=== PATIENT | female | born 1985 | race Two or more races ===

== ENCOUNTER 2020-02-21 19:22 | Emergency (ER) | payer MEDICAID, SELFPAY ==
[2020-02-21] MEDS ORDERED: Alum Hydroxide/Mag Hydroxide 30 ML, Lidocaine 2% 15 ML PO ONE ×2 (19:44)
--- NOTE | 2020-02-21 20:02 | EDM.PDOC ---
ED HPI GENERAL MEDICAL PROBLEM - General Chief Complaint: Chest Pain Stated Complaint: CHEST PAIN Time Seen by Provider: 02/21/20 19:30 Source of Information: Reports: Patient History Limitations: Reports: No Limitations - History of Present Illness INITIAL COMMENTS - FREE TEXT/NARRATIVE: c/o CP, lightheaded, inc'd BP at 2p today she had above sxs, discomfort in the epigastric area, did not eat bfast or lunch, tried eating pizza at 6p without benefit also took propranolol at 6p without benefit pt also takes Latuda for depression and Toradol prn for migraine BP at home was 141/101 which worried her, here it is 128/89 smoked 1 ppd x 12y not worked outside the house, was in bed much of the day, denies street drugs 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: - Past Surgical History Cardiovascular Surgical History: Reports: Coronary Artery Bypass Social & Family History - Family History Family Medical History: Noncontributory - Caffeine Use Caffeine Use: Reports: None ED ROS GENERAL - Review of Systems Review Of Systems: See Below Constitutional: Reports: No Symptoms HEENT: Reports: No Symptoms Respiratory: Reports: No Symptoms Cardiovascular: Reports: Chest Pain, Other (actually pt points to the epigastric area, not chest, as source of pain) Endocrine: Reports: No Symptoms GI/Abdominal: Reports: No Symptoms : Reports: No Symptoms Musculoskeletal: Reports: No Symptoms Skin: Reports: No Symptoms Neurological: Reports: No Symptoms Psychiatric: Reports: No Symptoms Hematologic/Lymphatic: Reports: No Symptoms Immunologic: Reports: No Symptoms ED EXAM, GENERAL - Physical Exam Exam: See Below Exam Limited By: No Limitations General Appearance: Alert, WD/WN, No Apparent Distress Ears: Hearing Grossly Normal Nose: Normal Inspection, Normal Mucosa, No Blood Throat/Mouth: Normal Inspection, Normal Lips, No Airway Compromise Head: Atraumatic, Normocephalic Neck: Normal Inspection, Supple, Non-Tender Respiratory/Chest: No Respiratory Distress, Lungs Clear, Normal Breath Sounds Cardiovascular: Regular Rate, Rhythm, No Edema, No Murmur GI/Abdominal: Normal Bowel Sounds, Soft, Non-Tender, No Distention, Other (epigastric area did not appear tender on exam) Back Exam: Normal Inspection, Full Range of Motion. No: CVA Tenderness (R), CVA Tenderness (L) Extremities: Normal Inspection, Normal Range of Motion, Non-Tender, Normal Capillary Refill, No Pedal Edema Neurological: Alert, Oriented, CN II-XII Intact, Normal Cognition, No Motor/Sensory Deficits Psychiatric: Normal Affect, Normal Mood Skin Exam: Warm, Dry, Intact, Normal Color, No Rash Lymphatic: No Adenopathy Course - Vital Signs Last Recorded V/S: Last Vital Signs Temp 36.6 C 02/21/20 19:35 Pulse 66 02/21/20 19:35 Resp 17 02/21/20 19:35 BP 139/89 02/21/20 19:35 Pulse Ox 100 02/21/20 19:35 - Orders/Labs/Meds Labs: Laboratory Tests 02/21/20 02/21/20 02/21/20 Range/Units 19:50 19:50 19:50 WBC 7.6 (4.5-12.0) X10-3/uL RBC 4.55 (3.23-5.20) x10(6)uL Hgb 13.3 (11.5-15.5) g/dL Hct 40.3 (30.0-51.3) % MCV 88.6 (80-96) fL MCH 29.3 (27.7-33.6) pg MCHC 33.0 (32.2-35.4) g/dL RDW 12.0 (11.5-15.5) % Plt Count 215 (125-369) X10(3)uL MPV 8.9 (7.4-10.4) fL Neut % (Auto) 63.7 (46-82) % Lymph % (Auto) 28.8 (13-37) % [place] % (Auto) 5.8 (4-12) % Eos % (Auto) 1 (1.0-5.0) % Baso % (Auto) 0 (0-2) % Neut # (Auto) 4.9 (1.6-8.3) # Lymph # (Auto) 2.2 (0.6-5.0) # [place] # (Auto) 0.4 (0.0-1.3) # Eos # (Auto) 0.1 (0.0-0.8) # Baso # (Auto) 0.0 (0.0-0.2) # D-Dimer, Quantitative 0.38 (0.0-0.59) mg/LFEU Sodium 140 (135-145) mmol/L Potassium 4.0 (3.5-5.3) mmol/L Chloride 104 (100-110) mmol/L Carbon Dioxide 28 (21-32) mmol/L BUN 13 (7-18) mg/dL Creatinine 1.0 (0.55-1.02) mg/dL Est Cr Clr Drug Dosing TNP Estimated GFR (MDRD) > 60 (>60) BUN/Creatinine Ratio 13.0 (9-20) Glucose 102 (80-116) mg/dL Calcium 9.0 (8.6-10.2) mg/dL Total Bilirubin 0.3 (0.1-1.3) mg/dL AST 15 D (5-25) IU/L ALT 23 D (12-36) U/L Alkaline Phosphatase 42 L (56-112) IU/L Troponin I (4.0-60.3) pg/mL C-Reactive Protein (0.5-0.9) mg/dL Total Protein 6.8 (6.0-8.0) g/dL Albumin 3.6 (3.5-5.2) g/dL Globulin 3.2 g/dL Albumin/Globulin Ratio 1.1 /14/20 Range/Units 19:50 WBC (4.5-12.0) X10-3/uL RBC (3.23-5.20) x10(6)uL Hgb (11.5-15.5) g/dL Hct (30.0-51.3) % MCV (80-96) fL MCH (27.7-33.6) pg MCHC (32.2-35.4) g/dL RDW (11.5-15.5) % Plt Count (125-369) X10(3)uL MPV (7.4-10.4) fL Neut % (Auto) (46-82) % Lymph % (Auto) (13-37) % [place] % (Auto) (4-12) % Eos % (Auto) (1.0-5.0) % Baso % (Auto) (0-2) % Neut # (Auto) (1.6-8.3) # Lymph # (Auto) (0.6-5.0) # [place] # (Auto) (0.0-1.3) # Eos # (Auto) (0.0-0.8) # Baso # (Auto) (0.0-0.2) # D-Dimer, Quantitative (0.0-0.59) mg/LFEU Sodium (135-145) mmol/L Potassium (3.5-5.3) mmol/L Chloride (100-110) mmol/L Carbon Dioxide (21-32) mmol/L BUN (7-18) mg/dL Creatinine (0.55-1.02) mg/dL Est Cr Clr Drug Dosing Estimated GFR (MDRD) (>60) BUN/Creatinine Ratio (9-20) Glucose (80-116) mg/dL Calcium (8.6-10.2) mg/dL Total Bilirubin (0.1-1.3) mg/dL AST (5-25) IU/L ALT (12-36) U/L Alkaline Phosphatase (56-112) IU/L Troponin I < 4.0 L (4.0-60.3) pg/mL C-Reactive Protein 0.3 L (0.5-0.9) mg/dL Total Protein (6.0-8.0) g/dL Albumin (3.5-5.2) g/dL Globulin g/dL Albumin/Globulin Ratio Meds: Medications Discontinued Medications Generic Name Dose Route Start Last Admin Trade Name Freq PRN Reason Stop Dose Admin Al Hydroxide/Mg Hydroxide 30 0 ml 02/21/20 19:44 02/21/20 19:48 ml/ Lidocaine HCl 15 ml PO 02/21/20 19:45 45 ml ONETIME ONE Administration - Re-Assessments/Exams Free Text/Narrative Re-Assessment/Exam: 02/21/20 20:04 EKG with FL 3.5 mm, no true delta wave, no ST change, SR, rate 63 labs pending epigastric pain gone after GI cocktail Free Text/Narrative Re-Assessment/Exam: 02/21/20 20:48 pt is pain free at time of d/c, labs are neg Departure - Departure Time of Disposition: 20:43 Disposition: Home, Self-Care 01 Condition: Good Clinical Impression: GERD (gastroesophageal reflux disease) - Discharge Information *PRESCRIPTION DRUG MONITORING PROGRAM REVIEWED*: Not Applicable *COPY OF PRESCRIPTION DRUG MONITORING REPORT IN PATIENT QUAN: Not Applicable Prescriptions: Omeprazole 20 mg PO DAILY #10 tablet.dr Instructions: Gastroesophageal Reflux Disease, Adult, Food Choices for Gastroesophageal Reflux Disease, Adult Referrals: PCP,Not In Area [Primary Care Provider] - Forms: ED Department Discharge Additional Instructions: To decrease acid production, take omeprazole 20 mg 1 tab daily for 10 days. To neutralize acid, take liquid antacid (Maalox, Mylanta or generic) 30 ml, which is 2 tablespoons, every 4 hours as needed. Limit fatty foods. Eat 3 meals a day. See your doctor in the next week for further recommendations. Return to ED if you are feeling worse or develop new symptoms. Sepsis Event Note (ED) - Evaluation Sepsis Screening Result: No Definite Risk - Focused Exam Vital Signs: Vital Signs Temp Pulse Resp BP Pulse Ox 02/21/20 19:35 36.6 C 66 17 139/89 100
== END 2020-02-21 21:00 | disposition home or self-care (01) ==
LOC: FB.ED 19:22
DX: K21.9 Gastro-esophageal reflux disease without esophagitis (principal); I10 Essential (primary) hypertension; I25.2 Old myocardial infarction; Z79.899 Other long term (current) drug therapy; F17.210 Nicotine dependence, cigarettes, uncomplicated
CPT/HCPCS: 36415; 80053; 84484; 85025; 85379; 86140; 93005; 99284-25; A9270-GY

== ENCOUNTER 2020-06-05 17:55 | Observation (INO) | payer MEDICAID ==
[2020-06-05] MEDS ORDERED: Sodium Chloride 0.9% 10 ML Syringe FLUSH PRN (18:20)
--- NOTE | 2020-06-05 18:27 | EDM.PDOC ---
ED HPI GENERAL MEDICAL PROBLEM - General Chief Complaint: Cardiovascular Problem Stated Complaint: DIZZINESS Time Seen by Provider: 06/05/20 18:22 Source of Information: Reports: Patient History Limitations: Reports: No Limitations - History of Present Illness INITIAL COMMENTS - FREE TEXT/NARRATIVE: Presents with intermittent "dizzy spells" associated with rapid heart rate and SOB x 1 week. These spells last up to 1 hour. Patient has a prior history of WPW s/p ablation in 2015 at [facility]. Patient drinks coffee daily, but not excessively. Denies substance abuse or use of stimulants. Duration: Week(s): (1) Severity: Moderate - Related Data Allergies Allergy/AdvReac Type Severity Reaction Status Date / Time duloxetine [From Cymbalta] Allergy Other Verified 06/05/20 18:30 lamotrigine [From Lamictal] Allergy Hives Verified 06/05/20 18:30 Home Meds: Home Meds Eletriptan Hydrobromide [Relpax] 40 mg PO DAILY PRN 02/21/20 [History] Lurasidone [Latuda] 60 mg PO BEDTIME 02/21/20 [History] Propranolol HCl [Propranolol] 60 mg PO BID 02/21/20 [History] Cyclobenzaprine [Flexeril] 10 mg PO BID PRN 06/05/20 [History] Ketorolac [Toradol] 60 mg IM ASDIRECTED PRN 06/05/20 [History] traZODone 50 - 100 mg PO BEDTIME PRN 06/05/20 [History] Past Medical History Cardiovascular History: Reports: Hypertension, Other (See Below) (WPW syndrome) 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 ED EXAM, GENERAL - Physical Exam Exam: See Below Exam Limited By: No Limitations General Appearance: Alert, WD/WN, No Apparent Distress Nose: Normal Inspection Throat/Mouth: No Airway Compromise Head: Atraumatic, Normocephalic Neck: Full Range of Motion Respiratory/Chest: No Respiratory Distress, Lungs Clear, Normal Breath Sounds Cardiovascular: Regular Rate, Rhythm, No Murmur Back Exam: Full Range of Motion Extremities: Normal Range of Motion Neurological: Alert, Normal Cognition Psychiatric: Normal Affect, Normal Mood Skin Exam: Warm, Dry, Intact #1 Interpretation EKG Date: 06/05/20 Time: 18:13 Rhythm: NSR Rate (Beats/Min): 66 Mize: Normal P-Wave: Present QRS: Normal ST-T: Normal QT: Normal Course - Vital Signs Last Recorded V/S: Last Vital Signs Temp 36.8 C 06/05/20 18:00 Pulse 72 06/05/20 18:00 Resp 18 06/05/20 18:00 BP 123/57 L 06/05/20 18:00 Pulse Ox 100 06/05/20 18:00 - Orders/Labs/Meds Orders: Active Orders 24 hr Category Date Time Status Admission Status [Patient Status] [ADT] Routine ADT 06/05/20 19:33 Ordered Telemetry Monitoring [Cardiac Monitoring] [RC] .As Care 06/05/20 18:20 Active Directed Sodium Chloride 0.9% [Saline Flush] Med 06/05/20 18:20 Active 10 ml FLUSH ASDIRECTED PRN Saline Lock Insert [OM.PC] Routine Oth 06/05/20 18:20 Ordered Medication Orders Sodium Chloride (Saline Flush) 10 ml FLUSH ASDIRECTED PRN PRN Reason: Keep Vein Open Last Admin: 06/05/20 18:30 Dose: 10 ml Documented by: KAY Labs: Laboratory Tests 06/05/20 06/05/20 Range/Units 18:42 18:42 WBC 6.5 (4.5-12.0) X10-3/uL RBC 4.91 (3.23-5.20) x10(6)uL Hgb 15.2 (11.5-15.5) g/dL Hct 43.3 (30.0-51.3) % MCV 88.2 (80-96) fL MCH 30.9 (27.7-33.6) pg MCHC 35.0 (32.2-35.4) g/dL RDW 11.7 (11.5-15.5) % Plt Count 242 (125-369) X10(3)uL MPV 8.4 (7.4-10.4) fL Neut % (Auto) 57.3 (46-82) % Lymph % (Auto) 33.5 (13-37) % [place] % (Auto) 7.5 (4-12) % Eos % (Auto) 2 (1.0-5.0) % Baso % (Auto) 0 (0-2) % Neut # (Auto) 3.7 (1.6-8.3) # Lymph # (Auto) 2.2 (0.6-5.0) # [place] # (Auto) 0.5 (0.0-1.3) # Eos # (Auto) 0.1 (0.0-0.8) # Baso # (Auto) 0.0 (0.0-0.2) # Sodium 138 (135-145) mmol/L Potassium 3.9 (3.5-5.3) mmol/L Chloride 101 (100-110) mmol/L Carbon Dioxide 28 (21-32) mmol/L BUN 13 (7-18) mg/dL Creatinine 0.9 (0.55-1.02) mg/dL Est Cr Clr Drug Dosing 73.55 mL/min Estimated GFR (MDRD) > 60 (>60) BUN/Creatinine Ratio 14.4 (9-20) Glucose 93 (80-116) mg/dL Calcium 9.6 (8.6-10.2) mg/dL Magnesium 2.1 (1.8-2.5) mg/dL Total Bilirubin 0.4 (0.1-1.3) mg/dL AST 18 D (5-25) IU/L ALT 39 H D (12-36) U/L Alkaline Phosphatase 48 L (56-112) IU/L Total Protein 7.7 (6.0-8.0) g/dL Albumin 3.9 (3.5-5.2) g/dL Globulin 3.8 g/dL Albumin/Globulin Ratio 1.0 Meds: Medications Generic Name Dose Route Start Last Admin Trade Name Freq PRN Reason Stop Dose Admin Sodium Chloride 10 ml 06/05/20 18:20 06/05/20 18:30 Saline Flush FLUSH 10 ml ASDIRECTED PRN Administration Keep Vein Open - Re-Assessments/Exams Free Text/Narrative Re-Assessment/Exam: 06/05/20 19:35 Patient care discussed with Dr. Jacobsen ([facility]), he recommends admission overnight on Telemetry and give IV Lopressor for any tachyarrythmias. Departure - Departure Time of Disposition: 19:38 Disposition: Refer to Observation Condition: Fair Clinical Impression: Heart palpitations Referrals: PCP,None [Primary Care Provider] - Forms: ED Department Discharge Sepsis Event Note (ED) - Focused Exam Vital Signs: Vital Signs Temp Pulse Resp BP Pulse Ox 06/05/20 18:00 36.8 C 72 18 123/57 L 100 - My Orders Last 24 Hours: My Active Orders 06/05/20 18:20 Telemetry Monitoring [Cardiac Monitoring] [RC] .As Directed Sodium Chloride 0.9% [Saline Flush] 10 ml FLUSH ASDIRECTED PRN Saline Lock Insert [OM.PC] Routine 06/05/20 19:33 Admission Status [Patient Status] [ADT] Routine - Assessment/Plan Last 24 Hours: My Active Orders 06/05/20 18:20 Telemetry Monitoring [Cardiac Monitoring] [RC] .As Directed Sodium Chloride 0.9% [Saline Flush] 10 ml FLUSH ASDIRECTED PRN Saline Lock Insert [OM.PC] Routine 06/05/20 19:33 Admission Status [Patient Status] [ADT] Routine
[2020-06-05] MEDS ORDERED: traZODone 50 MG Tab PO PRN (20:10)
[2020-06-05] MEDS ORDERED: Propranolol 20 MG Tab PO SCH (21:00)
[2020-06-05] MEDS ORDERED: Propranolol 60 MG Cap.ER PO SCH (21:00)
[2020-06-05] MEDS ORDERED: LURASIDONE 120 MG PO SCH (21:00)
[2020-06-05] MEDS: Propranolol 60 MG Cap.ER PO SCH (21:32)
[2020-06-06] MEDS: Propranolol 60 MG Cap.ER PO SCH (08:34)
[2020-06-06] MEDS ORDERED: Propranolol 60 MG Cap.ER PO SCH (09:00)
--- NOTE | 2020-06-06 13:41 | HP ---
ADMISSION DATE: 06/05/2020 CHIEF COMPLAINT: Lightheadedness and dizziness. HISTORY OF PRESENT ILLNESS: Mei is a 35-year-old woman with a history of Eelqi-Exiztxxvb-Qjasy disease diagnosed and treated with ablation in 2014. She has seen her regular provider in [place], who had her on a Zio patch for similar symptoms. She now has an upcoming appointment to review the results of this. The patient states that for the past 2 to 3 weeks, she has had an episode of lightheadedness and dizziness nearly daily. She did not feel palpitations or chest pain during this time. She does feel slightly short of breath with them. She has not had fever, chills, or symptoms of infection. For this reason, she came into the emergency room and was admitted overnight and placed on telemetry monitoring. She had 2 episodes of lightheadedness during the night that she states were quite mild, but cardiac rhythm remained in normal sinus rhythm with no abnormalities during these episodes, and no abnormal rhythms were noted during the time she had her telemetry in place. PAST MEDICAL HISTORY: WPW with ablation in 2014. She is status post cholecystectomy and vaginal converted to open abdominal hysterectomy. She has also had anxiety and depression. She is a cigarette smoker. She has migraine headaches and follows with Neurology for her migraines. She is 2, para 2, with normal deliveries. MEDICATIONS: 1. Inderal LA 60 one b.i.d. 2. Flexeril 10 mg b.i.d. p.r.n. 3. Trazodone 50 to 100 mg at bedtime p.r.n. 4. Latuda 60 mg at bedtime. 5. Relpax p.r.n. for migraines. 6. She also has listed Toradol. ALLERGIES: Duloxetine caused worsening depression. Lamotrigine caused hives. HABITS: Half pack per day cigarette smoker. Occasional alcohol. One cup of coffee per day. No other drugs. FAMILY AND SOCIAL HISTORY: Parents and siblings health is not known. Her grandfather, whom she is close to, is aged 87and has had multiple medical problems. SOCIAL HISTORY: The patient lives with her and 2 children in [place]. She has a son and a daughter, ages 9 and 12. She is not currently working outside the home. Her works for [employer]. REVIEW OF SYSTEMS: GENERAL: No seizure, syncope, or recent significant weight change. SKIN: Negative for rash. HEENT: No recent changes in hearing. She occasionally gets slight blurred vision with the dizzy episodes. No recent URI. No cough or purulent sputum. CHEST: No chest pain. See HPI for the dizzy symptoms. GASTROINTESTINAL: No nausea, vomiting, diarrhea, constipation, hematochezia, or melena. GENITOURINARY: No hematuria or UTI symptoms. MUSCULOSKELETAL: No joint inflammation, swelling, or skin rash. PHYSICAL EXAMINATION: GENERAL: She is alert, comfortable, and healthy in appearance. VITAL SIGNS: Blood pressure 82/51, pulse 77 and regular, respirations 18, temperature 97.9, weight 160 pounds, O2 saturation 97% on room air. SKIN: Multiple professional and nonprofessional tattoos. No rashes noted. HEENT: Shows pupils to be equal and reactive. Oropharynx is clear. LUNGS: Clear to the bases. HEART: Regular without murmur or gallop. Carotids are brisk without bruits. ABDOMEN: Normal bowel sounds. Soft and nontender. EXTREMITIES: No edema and good pulses at the dorsalis pedis bilaterally. LABORATORY DATA: White count 6500, hemoglobin 15.2, MCV 88, and platelets 242. Electrolytes normal. Creatinine 0.9. ALT 39 and alkaline phosphatase 48. Telemetry monitoring, as mentioned, showed no arrhythmias. ASSESSMENT: 1. Dizzy episodes, not associated with any cardiac rhythm abnormalities per telemetry. The association with slight visual change suggests these may be migraine symptoms. 2. Wqbjm-Nfvxbivcg-Oyjyb disease, status post ablation in 2014, considered successful and currently on propranolol b.i.d. for this. 3. Anxiety and depression. 4. Chronic migraine disorder. 5. History of vaginal hysterectomy with abdominal revision post surgical failure. 6. Lamotrigine allergy with hives. PLAN: I have discussed with her the normal telemetry results. As mentioned, she has an upcoming appointment with her current provider in [place] to go over her Zio patch results as well. No change in medications, and we will plan to discharge her later today. /[id number] LUIS ENRIQUE/RIO
--- NOTE | 2020-06-06 16:20 | DISCH ---
DISCHARGE DATE: 06/06/2020 HISTORY: Mei is a 35-year-old woman with history of Eturb-Pkiuldilq-Ugraq, status post ablation and on maintenance propranolol. She was admitted because of dizziness episodes and concern for possible arrhythmia. She was placed on telemetry monitoring and monitored overnight. She had 2 episodes where she felt very slightly dizzy along with some vision blurring. Her telemetry monitoring remained in normal sinus rhythm without abnormality during these episodes as well as for the remainder of the duration of her monitoring. She was otherwise quite stable, and by the morning of 06/06/2020, she was ready for discharge. DISCHARGE MEDICATIONS: She is sent home to continue medications as follows: 1. Ketorolac injection p.r.n. severe migraine. 2. Relpax 40 mg daily p.r.n. migraine. 3. Flexeril 10 mg b.i.d. 4. Trazodone 50 to 100 mg at bedtime p.r.n. sleep. 5. Inderal LA 60 mg b.i.d. 6. Latuda 60 mg p.o. bedtime. DISCHARGE INSTRUCTIONS: She has an appointment already scheduled to meet with her provider, Leonila Kramer at [facility] and will have follow up otherwise on a p.r.n. basis. /[id number] LUIS ENRIQUE/RIO
== END 2020-06-06 09:35 | disposition home or self-care (01) ==
LOC: FB.ED 17:55 → FB.MS 19:33
PROVIDERS: ADMIT Emergency Medicine; ATTEND Family Medicine
DX: R42 Dizziness and giddiness (principal); I45.6 Pre-excitation syndrome; F41.9 Anxiety disorder, unspecified; F32.9 Major depressive disorder, single episode, unspecified; I10 Essential (primary) hypertension; G43.909 Migraine, unspecified, not intractable, without status migrainosus; F17.210 Nicotine dependence, cigarettes, uncomplicated; Z79.899 Other long term (current) drug therapy; Z88.8 Allergy status to other drugs, medicaments and biological substances; Z98.890 Other specified postprocedural states; Z90.49 Acquired absence of other specified parts of digestive tract
CPT/HCPCS: 36415; 80053; 83735; 85025; 99285; A9270; G0378

== ENCOUNTER 2021-06-22 10:03 | Emergency (ER) | payer MEDICAID ==
--- NOTE | 2021-06-22 10:52 | EDM.PDOC ---
ED HPI GENERAL MEDICAL PROBLEM - General Stated Complaint: left ribcage pain Time Seen by Provider: 06/22/21 10:30 Source of Information: Reports: Patient - History of Present Illness INITIAL COMMENTS - FREE TEXT/NARRATIVE: Patient states that she was at work last night around 7:00 when she suddenly began to have a sharp pain in her left anterior rib cage. She points to an area just lateral to the midclavicular line at approximately T4/T5 intercostal space under her breast and states that the pain is constantly dull but occasionally sharp. She cannot think of anything that causes the pain to be worse. She tried taking propranolol which was prescribed to her after ablation for [id number] hoping it would help but it did not give her any relief of pain. The pain is sometimes exacerbated by deep breath and palpation, sometimes not. She has not had any kind of pressure or crushing type pain over her left chest, shortness of breath, diaphoresis, dizziness. She does not know of any sick contacts, she has not had fever, chills, change in bowel or bladder habits. She has had occasional mild sore throat and cough over the last several days. Left Lower Chest Pain Score (Numeric/FACES): 1 - Related Data Allergies Allergy/AdvReac Type Severity Reaction Status Date / Time duloxetine [From Cymbalta] Allergy Other Verified 06/22/21 13:48 lamotrigine [From Lamictal] Allergy Hives Verified 06/22/21 13:48 Home Meds: Home Meds Eletriptan Hydrobromide [Relpax] 40 mg PO DAILY PRN 02/21/20 [History] Lurasidone [Latuda] 60 mg PO BEDTIME 02/21/20 [History] Cyclobenzaprine [Flexeril] 10 mg PO BID PRN 06/05/20 [History] Ketorolac [Toradol] 60 mg IM ASDIRECTED PRN 06/05/20 [History] Propranolol HCl [Propranolol] 60 mg PO BID 06/05/20 [History] traZODone 50 - 100 mg PO BEDTIME PRN 06/05/20 [History] Past Medical History Cardiovascular History: Reports: Hypertension, Other (See Below) Other Cardiovascular History: hx WPW Genitourinary History: Reports: None 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: Reports: Other OPTOMETRIC 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: Musculoskeletal History: Reports: Fracture Other Musculoskeletal History: hx bilat finger fx Neurological History: Reports: Migraines Psychiatric History: Reports: Depression - Past Surgical History Cardiovascular Surgical History: Reports: Cardiac Ablation Female Surgical History: Reports: Hysterectomy Musculoskeletal Surgical History: Reports: None Social & Family History - Family History Family Medical History: No Pertinent Family History - Caffeine Use Caffeine Use: Reports: Coffee, Soda Other Caffeine Use: 1 cup coffee and 1 pop daily ED ROS GENERAL - Review of Systems Review Of Systems: See Below Constitutional: Reports: No Symptoms HEENT: Reports: Other (Sore throat) Respiratory: Reports: Cough Cardiovascular: Reports: Other (Pleuritic type left-sided chest pain) Endocrine: Reports: No Symptoms GI/Abdominal: Reports: No Symptoms : Reports: No Symptoms Musculoskeletal: Reports: No Symptoms Skin: Reports: No Symptoms Neurological: Reports: No Symptoms Psychiatric: Reports: No Symptoms Hematologic/Lymphatic: Reports: No Symptoms Immunologic: Reports: No Symptoms ED EXAM, GENERAL - Physical Exam Exam: See Below Exam Limited By: No Limitations General Appearance: Alert, WD/WN, No Apparent Distress Eye Exam: Bilateral Eye: EOMI Throat/Mouth: Normal Inspection Head: Atraumatic, Normocephalic Neck: Normal Inspection. No: Lymphadenopathy (R), Lymphadenopathy (L) Respiratory/Chest: No Respiratory Distress, Lungs Clear Cardiovascular: Regular Rate, Rhythm, No Murmur, Other (Tenderness to palpation proximally T4-T5 intercostal spaces just lateral to the midclavicular line, increased with deep palpation and increased with deep breath and increased with palpation with breath) Peripheral Pulses: 1+: Dorsalis Pedis (L), Dorsalis Pedis (R), 2+: Radial (L), Radial (R) GI/Abdominal: Normal Bowel Sounds, Soft, Non-Tender Back Exam: Normal Inspection Extremities: Normal Inspection Neurological: Alert, Oriented, CN II-XII Intact, Normal Cognition Psychiatric: Normal Affect, Normal Mood Skin Exam: Warm, Dry Lymphatic: No Adenopathy Course - Vital Signs Text/Narrative:: We were not able to draw blood from the patient to analyze labs. However, review of chest x-ray showed no acute process. The patient's symptoms and lack of fever with reproducible sharp chest pain with deep inspiration and/or palpation this is likely costochondritis or pleuritic chest pain. Attempts were made by 3 different individuals including anesthesiology to withdrawal blood and blood analysis was not able to be performed. Patient was sent home and instructed to follow-up with her primary care physician after receiving 30 mg of Toradol and having significant relief of symptoms. Last Recorded V/S: Last Vital Signs Temp 36.4 C 06/22/21 16:00 Pulse 75 06/22/21 16:00 Resp 17 06/22/21 16:00 BP 115/67 06/22/21 16:00 Pulse Ox 98 06/22/21 16:00 - Orders/Labs/Meds Orders: Active Orders 24 hr Category Date Time Status CXR [Chest 2V] [CR] Stat Exams 06/22/21 10:45 Taken Labs: Laboratory Tests 06/22/21 06/22/21 Range/Units 11:30 13:10 Urine Color Yellow (YELLOW) Urine Appearance Clear (CLEAR) Urine pH 6.0 (5.0-6.5) Ur Specific [place] 1.015 (1.010-1.025) Urine Protein Negative (NEGATIVE) mg/dL Urine Glucose (UA) Normal (NORMAL) mg/dL Urine Ketones Negative (NEGATIVE) mg/dL Urine Occult Blood Negative (NEGATIVE) Urine Nitrite Negative (NEGATIVE) Urine Bilirubin Negative (NEGATIVE) Urine Urobilinogen Normal (NEGATIVE) mg/dL Ur Leukocyte Esterase Negative (NEGATIVE) Urine RBC 0-5 (0-5) Urine WBC 0-5 (0-5) Ur Squamous Epith Cells Few H (NS,R,O) Urine Bacteria Few H (NS) SARS-CoV-2 RNA (TONIA) Negative (NEGATIVE) Meds: Medications Discontinued Medications Generic Name Dose Route Start Last Admin Trade Name Roberto PRN Reason Stop Dose Admin Lactated Ringer's 1,000 mls @ 999 mls/hr 06/22/21 11:31 06/22/21 12:24 Ringers, Lactated IV 06/22/21 12:31 999 mls/hr BOLUS ONE Administration Ketorolac Tromethamine 30 mg 06/22/21 14:32 06/22/21 14:55 Ketorolac 30 Mg/Ml Sdv IVPUSH 06/22/21 14:33 30 mg ONETIME ONE Administration Departure - Departure Time of Disposition: 16:00 Disposition: Home, Self-Care 01 Condition: Good Clinical Impression: Costochondritis, acute - Discharge Information *PRESCRIPTION DRUG MONITORING PROGRAM REVIEWED*: Not Applicable *COPY OF PRESCRIPTION DRUG MONITORING REPORT IN PATIENT QUAN: Not Applicable Instructions: Costochondritis, [id number] Referrals: PCP,Not In Area [Primary Care Provider] - Forms: ED Department Discharge Additional Instructions: Patient instructed to take acetaminophen and NSAIDs such as ibuprofen, naproxen as directed by label instructions for pain relief and to follow-up with her primary care physician. Patient instructed to return to the emergency department if she has fever, chills, chest pain, shortness of breath, dizziness, diaphoresis. - My Orders Last 24 Hours: My Active Orders 06/22/21 10:45 CXR [Chest 2V] [CR] Stat - Assessment/Plan Last 24 Hours: My Active Orders 06/22/21 10:45 CXR [Chest 2V] [CR] Stat
[2021-06-22] MEDS: Lactated Ringers 1,000 ML IV ONE (12:24)
[2021-06-22] MEDS: Ketorolac 30 MG/ML SDV IVPUSH ONE (14:55)
--- NOTE | 2021-06-24 11:20 | CR ---
CHEST TWO VIEWS INDICATION: Pleuritic chest pain under left breast since 06/21/21. FINDINGS: PA and lateral views of the chest 06/24/21 were compared with 07/02/18, again revealing a moderate dextroconvex scoliosis of the mid thoracic spine. Heart and mediastinum are unremarkable. A definite active infiltrate or effusion was not identified. There is a minimal linear density at the lower lung field on the left which may represent interval scarring or possibly minimal subsegmental atelectasis - linear atelectasis. No consolidating pneumonia or effusion was seen. IMPRESSION: No definite acute process - a minimal linear atelectatic strand may be present at the left lung base. MTDD
== END 2021-06-22 16:00 | disposition home or self-care (01) ==
LOC: FB.ED 10:03
DX: M94.0 Chondrocostal junction syndrome [Tietze] (principal); I10 Essential (primary) hypertension; Z88.8 Allergy status to other drugs, medicaments and biological substances; Z79.899 Other long term (current) drug therapy; Z20.822 Contact with and (suspected) exposure to COVID-19
CPT/HCPCS: 71046; 81001; 87635; 96374; 99283; J1885; J7120; U0002

== ENCOUNTER 2023-01-06 21:25 | Emergency (ER) | payer MEDICAID ==
[2023-01-06 22:38] LABS: BASOPHILS PERCENT AUTO 0.1 % (0.2-1.5); EOSINOPHILS ABSOLUTE AUTO 0.1 x10-3/uL (0.0-0.8); EOSINOPHILS PERCENT AUTO 1.2 % (0.6-8.1); HEMATOCRIT 41.7 % (34.2-48.2); HEMOGLOBIN 14.1 g/dL (11.4-15.5); LYMPHOCYTES ABSOLUTE AUTO 2.9 x10-3/uL (1.0-4.4); LYMPHOCYTES PERCENT AUTO 27.5 % (18.4-52.1); MEAN CORPUSCULAR HEMOGLOBIN 30.8 pg (23.9-33.9); MEAN CORPUSCULAR HGB CONC 33.9 g/dL (31.9-34.8); MEAN CORPUSCULAR VOLUME 90.9 fL (76.7-100.5); MEAN PLATELET VOLUME 9.2 fL (7.1-12.4); MONOCYTES ABSOLUTE AUTO 0.6 x10-3/uL (0.3-1.0); MONOCYTES PERCENT AUTO 5.5 % (4.4-15.7); NEUTROPHILS PERCENT AUTO 65.7 % (30.8-76.2); PLATELET COUNT,PLT 295 x10(3)uL (151-488); RED BLOOD CELL COUNT 4.59 x10(6)uL (3.60-5.20); RED CELL DISTRIBUTION WIDTH 12.8 % (12.3-16.5); WHITE BLOOD CELL COUNT,WBC 10.6 x10-3/uL (3.0-10.3)
[2023-01-06 22:41] LABS: BLOOD UREA NITROGEN,BUN 11 mg/dL (7-18); CALCIUM 9.5 mg/dL (8.6-10.2); CARBON DIOXIDE,CO2 27 mmol/L (21-32); CHLORIDE,CL 103 mmol/L (100-110); ESTIMATED GFR 75 mL/min (>60); GLUCOSE RANDOM 106 mg/dL (80-116); POTASSIUM,K 3.8 mmol/L (3.5-5.3); SODIUM,NA 137 mmol/L (135-145)
[2023-01-06 22:47] LABS: A/G RATIO 1.2; ALANINE AMINOTRANSFERASE,ALT 23 U/L (12-36); ALBUMIN 4.1 g/dL (3.5-5.2); ALKALINE PHOSPHATASE 48 IU/L (56-112); ASPARTATE AMNIOTRANSFERASE,AST 14 IU/L (5-25); BILIRUBIN TOTAL 0.3 mg/dL (0.1-1.3); PROTEIN TOTAL,TP 7.4 g/dL (6.0-8.0)
[2023-01-06 22:53] LABS: SEDIMENTATION RATE MANUAL 1 mm/hr (0-20)
[2023-01-08 17:12] LABS: ANA DIRECT Negative (Negative); SJOGREN'S ANTI-SS-A <0.2 AI (0.0-0.9); SJOGREN'S ANTI-SS-B <0.2 AI (0.0-0.9)
[2023-01-09 12:13] LABS: LYME TOTAL ANTIBODY CIA Negative (Negative)
== END 2023-01-06 23:41 | disposition home or self-care (01) ==
LOC: FB.ED 21:25
DX: M25.50 Pain in unspecified joint (principal); I10 Essential (primary) hypertension; F17.210 Nicotine dependence, cigarettes, uncomplicated; Z88.8 Allergy status to other drugs, medicaments and biological substances; Z79.899 Other long term (current) drug therapy
CPT/HCPCS: 36415; 80053; 85025; 85651; 86038; 86140; 86235; 86235-59; 86431; 86618; 99284

== ENCOUNTER 2023-03-29 12:41 | Emergency (ER) | payer MEDICAID | END 2023-03-29 13:40 | disposition home or self-care (01) | LOC: FB.ED 12:41 | DX: G62.9 Polyneuropathy, unspecified (principal); I10 Essential (primary) hypertension; Z88.8 Allergy status to other drugs, medicaments and biological substances | CPT/HCPCS: 99283 ==

== ENCOUNTER 2024-07-18 16:20 | Emergency (ER) | payer MEDICAID ==
[2024-07-18] MEDS ORDERED: Meclizine 25 MG Tab PO ONE (16:21)
[2024-07-18] MEDS: Ondansetron 4 MG Tab.DIS PO ONE (16:45)
[2024-07-18] MEDS: Meclizine 25 MG Tab PO ONE (16:54)
[2024-07-18 17:17] LABS: BASOPHILS PERCENT AUTO 0.6 % (0.2-1.5); EOSINOPHILS ABSOLUTE AUTO 0.1 x10-3/uL (0.0-0.8); EOSINOPHILS PERCENT AUTO 0.9 % (0.6-8.1); HEMATOCRIT 45.3 % (34.2-48.2); HEMOGLOBIN 15.7 g/dL (11.4-15.5); LYMPHOCYTES ABSOLUTE AUTO 1.4 x10-3/uL (1.0-4.4); LYMPHOCYTES PERCENT AUTO 21.1 % (18.4-52.1); MEAN CORPUSCULAR HEMOGLOBIN 30.9 pg (23.9-33.9); MEAN CORPUSCULAR HGB CONC 34.7 g/dL (31.9-34.8); MONOCYTES ABSOLUTE AUTO 0.5 x10-3/uL (0.3-1.0); MONOCYTES PERCENT AUTO 6.8 % (4.4-15.7); NEUTROPHILS ABSOLUTE AUTO 4.6 x10-3/uL (1.5-6.3); NEUTROPHILS PERCENT AUTO 70.6 % (30.8-76.2); PLATELET COUNT,PLT 244 x10(3)uL (151-488); RED BLOOD CELL COUNT 5.09 x10(6)uL (3.60-5.20); RED CELL DISTRIBUTION WIDTH 13.1 % (12.3-16.5); WHITE BLOOD CELL COUNT,WBC 6.6 x10-3/uL (3.0-10.3)
[2024-07-18 17:24] LABS: BLOOD UREA NITROGEN,BUN 8 mg/dL (7-18); BUN/CREATININE RATIO 7.3 (9-20); CALCIUM 9.6 mg/dL (8.6-10.2); CARBON DIOXIDE,CO2 25 mmol/L (21-32); CHLORIDE,CL 104 mmol/L (100-110); CREATININE 1.1 mg/dL (0.55-1.02); EST CRCL DRUG DOSING (CG) 60.47 mL/min; ESTIMATED GFR 66 mL/min (>60); GLUCOSE RANDOM 102 mg/dL (80-116); POTASSIUM,K 3.9 mmol/L (3.5-5.3); SODIUM,NA 140 mmol/L (135-145)
[2024-07-18 17:26] LABS: BILIRUBIN,URINE NEGATIVE (NEGATIVE); GLUCOSE,URINE NORMAL (NORMAL); KETONES,URINE NEGATIVE (NEGATIVE); LEUKOCYTE ESTERASE,URINE NEGATIVE (NEGATIVE); NITRITE,URINE NEGATIVE (NEGATIVE); OCCULT BLOOD,URINE MODERATE (NEGATIVE); PROTEIN,URINE NEGATIVE (NEGATIVE); UROBILINOGEN,URINE NORMAL (NEGATIVE)
[2024-07-18 17:27] LABS: APPEARANCE,URINE CLEAR (CLEAR); COLOR,URINE YELLOW (YELLOW)
[2024-07-18 17:28] LABS: BACTERIA,URINE OCCASIONAL (NS); RBC,URINE 0-5 (0-5); SQUAMOUS EPITHELIAL CELLS,UR OCCASIONAL (NS,R,O); WBC,URINE 0-5 (0-5)
[2024-07-18 17:30] LABS: A/G RATIO 1.2; ALANINE AMINOTRANSFERASE,ALT 31 U/L (12-36); ALBUMIN 3.9 g/dL (3.5-5.2); ALKALINE PHOSPHATASE 57 IU/L (56-112); ASPARTATE AMNIOTRANSFERASE,AST 13 IU/L (5-25); BILIRUBIN TOTAL 0.4 mg/dL (0.1-1.3); PROTEIN TOTAL,TP 7.3 g/dL (6.0-8.0)
== END 2024-07-18 18:00 | disposition home or self-care (01) ==
LOC: FB.ED 16:20
DX: R42 Dizziness and giddiness (principal); I10 Essential (primary) hypertension; F17.210 Nicotine dependence, cigarettes, uncomplicated; Z90.49 Acquired absence of other specified parts of digestive tract; Z90.710 Acquired absence of both cervix and uterus; Z88.8 Allergy status to other drugs, medicaments and biological substances; Z79.899 Other long term (current) drug therapy
CPT/HCPCS: 36415; 70450; 80053; 81001; 85025; 87428; 93005; 99284; A9270; Q0162

== ENCOUNTER 2024-09-12 16:10 | Emergency (ER) | payer MEDICAID | END 2024-09-12 17:55 | disposition home or self-care (01) | LOC: FB.ED 16:10 | DX: S09.90XA Unspecified injury of head, initial encounter (principal); I10 Essential (primary) hypertension; Z90.710 Acquired absence of both cervix and uterus; Z88.8 Allergy status to other drugs, medicaments and biological substances; Z79.890 Hormone replacement therapy; Z90.49 Acquired absence of other specified parts of digestive tract; W01.198A Fall on same level from slipping, tripping and stumbling with subsequent striking against other object, initial encounter; Y93.89 Activity, other specified | CPT/HCPCS: 70450; 72125; 99283 ==

== ENCOUNTER 2024-10-13 21:23 | Emergency (ER) | payer MEDICAID ==
[2024-10-13] MEDS: Ondansetron 4 MG/2 ML SDV IVPUSH ONE (22:20)
[2024-10-13] MEDS: Sodium Chloride 0.9% 1,000 ML IV ONE (22:21)
[2024-10-13] MEDS: Morphine 2 MG/ML SYRINGE IVPUSH ONE (22:23)
[2024-10-13 22:32] LABS: BLOOD UREA NITROGEN,BUN 6 mg/dL (7-18); BUN/CREATININE RATIO 5.5 (9-20); CALCIUM 9.4 mg/dL (8.6-10.2); CARBON DIOXIDE,CO2 26 mmol/L (21-32); CHLORIDE,CL 103 mmol/L (100-110); CREATININE 1.1 mg/dL (0.55-1.02); ESTIMATED GFR 66 mL/min (>60); GLUCOSE RANDOM 98 mg/dL (80-116); POTASSIUM,K 3.8 mmol/L (3.5-5.3); SODIUM,NA 139 mmol/L (135-145)
[2024-10-13 22:43] LABS: ALANINE AMINOTRANSFERASE,ALT 28 U/L (12-36); ALBUMIN 3.8 g/dL (3.5-5.2); ALKALINE PHOSPHATASE 57 IU/L (56-112); ASPARTATE AMNIOTRANSFERASE,AST 15 IU/L (5-25); BILIRUBIN TOTAL 0.5 mg/dL (0.1-1.3); PROTEIN TOTAL,TP 7.7 g/dL (6.0-8.0)
[2024-10-13 22:52] LABS: BASOPHILS PERCENT AUTO 0.3 % (0.2-1.5); EOSINOPHILS PERCENT AUTO 0.6 % (0.6-8.1); LYMPHOCYTES ABSOLUTE AUTO 2.3 x10-3/uL (1.0-4.4); LYMPHOCYTES PERCENT AUTO 26.3 % (18.4-52.1); MEAN CORPUSCULAR HEMOGLOBIN 31.5 pg (23.9-33.9); MEAN PLATELET VOLUME 9.4 fL (7.1-12.4); MONOCYTES ABSOLUTE AUTO 0.5 x10-3/uL (0.3-1.0); MONOCYTES PERCENT AUTO 5.3 % (4.4-15.7); NEUTROPHILS ABSOLUTE AUTO 5.9 x10-3/uL (1.5-6.3); NEUTROPHILS PERCENT AUTO 67.5 % (30.8-76.2); PLATELET COUNT,PLT 253 x10(3)uL (151-488); RED BLOOD CELL COUNT 4.45 x10(6)uL (3.60-5.20); RED CELL DISTRIBUTION WIDTH 13.1 % (12.3-16.5); WHITE BLOOD CELL COUNT,WBC 8.8 x10-3/uL (3.0-10.3)
[2024-10-13 22:55] LABS: BILIRUBIN,URINE NEGATIVE (NEGATIVE); GLUCOSE,URINE NORMAL (NORMAL); KETONES,URINE NEGATIVE (NEGATIVE); LEUKOCYTE ESTERASE,URINE NEGATIVE (NEGATIVE); NITRITE,URINE NEGATIVE (NEGATIVE); OCCULT BLOOD,URINE NEGATIVE (NEGATIVE); PROTEIN,URINE NEGATIVE (NEGATIVE); UROBILINOGEN,URINE NORMAL (NEGATIVE)
[2024-10-13 22:56] LABS: APPEARANCE,URINE CLEAR (CLEAR); COLOR,URINE YELLOW (YELLOW)
[2024-10-13] MEDS: HYDROmorphone 2 MG/ML SDV IVPUSH ONE (23:03)
[2024-10-13] MEDS: Iopamidol 755 Mg/ML 100 ML Bottle IV ONE (23:07)
== END 2024-10-13 23:51 | disposition home or self-care (01) ==
LOC: FB.ED 21:23
DX: R10.11 Right upper quadrant pain (principal); I10 Essential (primary) hypertension; Z90.49 Acquired absence of other specified parts of digestive tract; Z90.710 Acquired absence of both cervix and uterus; Z91.030 Bee allergy status; Z88.8 Allergy status to other drugs, medicaments and biological substances; Z79.899 Other long term (current) drug therapy
CPT/HCPCS: 36415; 74177; 80053; 81003; 81025; 83690; 85025; 96361; 96374; 96375; 99284-25; J1171; J2270; J2405; J7030; Q9967

== ENCOUNTER 2024-10-30 09:38 | Emergency (ER) | payer MEDICAID ==
[2024-10-30] MEDS ORDERED: Sodium Chloride 0.9% 10 ML Syringe FLUSH PRN (09:52)
[2024-10-30] MEDS: Aspirin 81 MG Tab.Chew PO ONE (10:08)
[2024-10-30] MEDS: Sodium Chloride 0.9% 1,000 ML IV SCH (10:09)
[2024-10-30] MEDS: LORazepam 2 MG/ML SDV IVPUSH ONE (10:09)
[2024-10-30 10:15] LABS: BLOOD UREA NITROGEN,BUN 15 mg/dL (7-18); BUN/CREATININE RATIO 12.5 (9-20); CALCIUM 9.4 mg/dL (8.6-10.2); CARBON DIOXIDE,CO2 21 mmol/L (21-32); CHLORIDE,CL 104 mmol/L (100-110); CREATININE 1.2 mg/dL (0.55-1.02); ESTIMATED GFR 60 mL/min (>60); GLUCOSE RANDOM 109 mg/dL (80-116); POTASSIUM,K 4.2 mmol/L (3.5-5.3); SODIUM,NA 141 mmol/L (135-145)
[2024-10-30 10:18] LABS: BASOPHILS PERCENT AUTO 0.2 % (0.2-1.5); EOSINOPHILS ABSOLUTE AUTO 0.1 x10-3/uL (0.0-0.8); EOSINOPHILS PERCENT AUTO 0.8 % (0.6-8.1); HEMOGLOBIN 14.7 g/dL (11.4-15.5); LYMPHOCYTES ABSOLUTE AUTO 2.4 x10-3/uL (1.0-4.4); LYMPHOCYTES PERCENT AUTO 32.3 % (18.4-52.1); MEAN CORPUSCULAR HEMOGLOBIN 32.6 pg (23.9-33.9); MEAN CORPUSCULAR VOLUME 93.3 fL (76.7-100.5); MONOCYTES ABSOLUTE AUTO 0.4 x10-3/uL (0.3-1.0); MONOCYTES PERCENT AUTO 5.4 % (4.4-15.7); NEUTROPHILS ABSOLUTE AUTO 4.5 x10-3/uL (1.5-6.3); NEUTROPHILS PERCENT AUTO 61.3 % (30.8-76.2); PLATELET COUNT,PLT 243 x10(3)uL (151-488); RED CELL DISTRIBUTION WIDTH 12.5 % (12.3-16.5); WHITE BLOOD CELL COUNT,WBC 7.3 x10-3/uL (3.0-10.3)
[2024-10-30 10:21] LABS: A/G RATIO 1.1; ALANINE AMINOTRANSFERASE,ALT 28 U/L (12-36); ALBUMIN 3.7 g/dL (3.5-5.2); ALKALINE PHOSPHATASE 49 IU/L (56-112); ASPARTATE AMNIOTRANSFERASE,AST 14 IU/L (5-25); BILIRUBIN TOTAL 0.5 mg/dL (0.1-1.3); MAGNESIUM 1.9 mg/dL (1.8-2.5); PROTEIN TOTAL,TP 7.1 g/dL (6.0-8.0)
[2024-10-30 10:24] LABS: EST CRCL DRUG DOSING (CG) 55.43 mL/min
[2024-10-30 10:24] LABS: BASE EXCESS VENOUS,POC 1 mmol/L (-2 - 3+); PCO2 VENOUS,POC 25 mmHg (41-51); PH VENOUS,POC 7.54 pH Units (7.32-7.43)
[2024-10-30 10:25] LABS: C-REACTIVE PROTEIN < 0.50 mg/dL (<0.50); TROPONIN I < 4.0 pg/mL (4.0-60.3)
[2024-10-30 11:18] LABS: APPEARANCE,URINE SLIGHTLY CLOUDY (CLEAR); BILIRUBIN,URINE NEGATIVE (NEGATIVE); COLOR,URINE YELLOW (YELLOW); GLUCOSE,URINE NORMAL (NORMAL); KETONES,URINE NEGATIVE (NEGATIVE); LEUKOCYTE ESTERASE,URINE NEGATIVE (NEGATIVE); NITRITE,URINE NEGATIVE (NEGATIVE); OCCULT BLOOD,URINE NEGATIVE (NEGATIVE); PROTEIN,URINE NEGATIVE (NEGATIVE); UROBILINOGEN,URINE NORMAL (NEGATIVE)
== END 2024-10-30 11:40 ==
LOC: FB.ED 09:38
DX: E87.20 Acidosis, unspecified (principal); G97.82 Other postprocedural complications and disorders of nervous system; F41.9 Anxiety disorder, unspecified; R07.89 Other chest pain; F17.200 Nicotine dependence, unspecified, uncomplicated; Z91.030 Bee allergy status; Z88.8 Allergy status to other drugs, medicaments and biological substances; Z79.899 Other long term (current) drug therapy
CPT/HCPCS: 36415; 71045; 80053; 81003; 83605; 83735; 84484; 85025; 85379; 86140; 93005; 93010; 96361; 96374; 99285; 99285-25; A9270-GY; J2060; J7030

== ENCOUNTER 2025-06-12 20:23 | Emergency (ER) | payer MEDICAID | END 2025-06-12 21:11 | disposition home or self-care (01) | LOC: FB.ED 20:23 | DX: T78.04XA Anaphylactic reaction due to fruits and vegetables, initial encounter (principal); I10 Essential (primary) hypertension; E66.9 Obesity, unspecified; F17.200 Nicotine dependence, unspecified, uncomplicated; Z79.899 Other long term (current) drug therapy; Z91.030 Bee allergy status; Z88.8 Allergy status to other drugs, medicaments and biological substances; Z86.16 Personal history of COVID-19; Z90.49 Acquired absence of other specified parts of digestive tract; Z90.710 Acquired absence of both cervix and uterus; Z68.23 Body mass index [BMI] 23.0-23.9, adult; X58.XXXA Exposure to other specified factors, initial encounter | CPT/HCPCS: 99283; A9270-GY; J7512 ==